=== PATIENT | female | born 1950 | race Caucasian/White ===

== ENCOUNTER → 2017-06-10 | Day surgery (SDC) | payer MEDICARE ==
[~2017-06-10] MED LIST: AZMACORT100 MCG INH; BUPIVACAINE HCL PF 0.5% 30 ML VIAL ONE; DICL-86; DOXY100T PO; GLIM2TAB PO; KETOROLAC TROMETHAMINE 30 MG/ML (IVP) VIAL ONE; LACTATED RINGER'S 1000 ML INJ 1,000 ML ONE; LATA.005%O OU; LEVO25TA36 PO; MIDAZOLAM HCL 2 MG/2 ML VIAL ONE; MORPHINE SULFATE 4 MG/ML INJ ONE; OMEP20TA PO; ONDANSETRON HCL 4 MG/2 ML VIAL IV PUSH ONE; ceFAZolin 2 GM PREMIX 50 ML ONE
--- NOTE | 2017-06-10 12:57 | TN ---
cc: KAREN BAUMAN DATE OF SURGERY 06/08/2017 SURGEON Karen Bauman MD PRINCIPAL DIAGNOSIS Left axillary lipoma and left shoulder skin rash. POSTOPERATIVE DIAGNOSIS Left axillary lipoma and left shoulder skin rash. PROCEDURE PERFORMED Excision of left axillary lipoma and punch biopsy of left shoulder rash. SURGEON Karen Bauman MD ANESTHESIA General via LMA device. INDICATION The patient is a 67-year-old female who presented with left axillary fullness. On exam, she has what appears to be an indurated lipoma and she desires excision. She also recently developed a macular skin rash and I have recommended punch biopsy. FINDINGS AT THE TIME OF SURGERY A lipoma involving the level one axilla was identified. PROCEDURE NOTE After informed consent was obtained and site verification was performed, the patient was brought to the major operating room where she underwent general anesthesia via an LMA device. The left axilla and shoulder were prepped and draped in a sterile fashion. The skin overlying the mass was anesthetized with 0.5% Marcaine plain. A transverse incision was created overlying the left axillary mass and both sharp and electrocautery dissection were performed. The subcutaneous fat was quite indurated and the deeper layer was mobilized and dissected free from surrounding structures and included with the specimen. There was also a lipoma involving the level one axillary space and the indurated subcutaneous fat was included with the lipoma in the level I axillary space which was circumferentially dissected free from surrounding structures using electrocautery. The specimen was removed and sent for pathologic evaluation. Hemostasis was easily obtained with electrocautery and the wound was closed using interrupted 3-0 Vicryl subcutaneous sutures and a 4-0 Monocryl subcuticular suture. Steri-Strips and sterile dressing were applied. Attention was then turned to the left shoulder skin rash and a 3 mm punch was used to take a biopsy of the rash itself. This was sent separately as a permanent specimen and the biopsy site was closed with a single 3-0 nylon suture. Steri-Strips and sterile dressing were applied to the axillary wound and a Band-Aid was applied to the biopsy site. The patient tolerated the procedure well with blood loss of 100 cc and she was extubated in the operating room and brought to the recovery room in good condition. All sponge and needle counts were correct at the conclusion of the case. MD SHERICE Lewis/LUPILLO /12:48 PM /12:55 PM
== END | disposition home or self-care (01) ==
LOC: ESDC 09:36
PROVIDERS: ATTEND Surgery
DX: D17.1 Benign lipomatous neoplasm of skin and subcutaneous tissue of trunk (principal); R21 Rash and other nonspecific skin eruption; C44.91 Basal cell carcinoma of skin, unspecified
CPT/HCPCS: 00400; 11100; 21552; 88304; 88305; J0690; J1885; J2250; J2270; J2405; J3010; J7120